=== PATIENT | female | born 1970 ===

== ENCOUNTER → 2017-09-01 | Outpatient (REF) ==
[2017-09-01 06:21] LABS: BASO % 0.4 % (0.0-2.0); EOS # 0.1 (0.0-0.7); EOS % 1.1 % (0-4.0); GRAN # 7.5 (1.4-6.5); LYMPH # 1.7 (1.2-3.4); LYMPH % 16.5 % (20.0-51.0); MEAN CELL VOLUME 80 fl (80.0-100.0); MEAN CORPUSCULAR HGB CONC 32 g/dl (33.0-37.0); MEAN PLATELET VOLUME 10.8 fl (7.4-10.4); MONO % 9.6 % (1.7-9.3); PLATELET COUNT 288 K/mm3 (130-400); RED BLOOD COUNT 3.19 M/mm3 (4.10-5.30); WHITE BLOOD COUNT 10.4 K/mm3 (4.8-10.8)
[2017-09-01 06:25] LABS: HEMATOCRIT 25.6 % (37.0-47.0); HEMOGLOBIN 8.3 g/dl (12.5-16.0); MEAN CORPUSCULAR HEMOGLOBIN 26 pg (27.0-31.0)
== END ==
LOC: ZMSC 06:14
PROVIDERS: Internal Medicine Infectious Disease
DX: Z01.89 Encounter for other specified special examinations (principal)